=== PATIENT | female | born 1990 | race Caucasian/White ===

== ENCOUNTER → 2021-04-01 09:54 | Outpatient (CLI) | payer OTHER, SELFPAY ==
[2021-04-01 10:54] LABS: Hematocrit 39.8 % (36-46); Hemoglobin 13.3 g/dL (12.0-16.0); Mean Corpuscular HGB Conc 33.4 % (30-36); Mean Corpuscular Hemoglobin 30.5 PG (26-34); Mean Corpuscular Volume 91.2 fL (80-100); Platelet Count 186 X10^3/uL (150-400); Red Blood Cell Count 4.37 X10^6/uL (4.0-5.2); Red Cell Distribution Width 12.3 % (11.6-14.8); White Blood Cell Count 5.5 X10^3/uL (4.5-11.0)
[2021-04-01 10:58] LABS: Alanine Aminotransferase 19 IU/L (<35); Albumin 4.3 g/dL (3.5-5.0); Albumin Globulin Ratio 1.4 (1.0-2.8); Alkaline Phosphatase 42 U/L (38-126); Aspartate Aminotransferase 34 IU/L (14-36); BUN Creatinine Ratio 22.1 (6-22); Bilirubin Total 0.4 mg/dL (0.2-1.3); Blood Urea Nitrogen 17 mg/dL (7-17); Calcium 9.8 mg/dL (8.4-10.2); Carbon Dioxide 27 mmol/L (22-32); Chloride 106 mmol/L (98-107); Cholesterol 189 mg/dL (140-199); Estimated Glomerular Filt Rate > 60.0 mL/min (>60); Glucose 84 mg/dL (70-100); HDL Cholesterol 84 mg/dL (40-60); HEMOLYSIS < 15 (0-50); LDL Cholesterol Calculated 94 mg/dL (<100); Potassium 4.4 mmol/L (3.4-5.1); Sodium 139 mmol/L (137-145); Total Protein 7.3 g/dL (6.3-8.2); Triglycerides 54 mg/dL (35-150)
== END ==
PROVIDERS: PCP Nurse Practitioner Family; Referring Provider Nurse Practitioner Family; Visit Provider Nurse Practitioner Family
DX: Z13.6 Encounter for screening for cardiovascular disorders (principal); Z00.00 Encounter for general adult medical examination without abnormal findings
CPT/HCPCS: 36415; 80053; 80061; 85027

== ENCOUNTER → 2022-05-31 08:48 | Outpatient (CLI) | payer OTHER, SELFPAY ==
--- NOTE | 2022-05-31 08:49 | DI.US.S_ITS ---
PROCEDURE: US OB <= 14 WEEKS FETUS INDICATIONS: DATING OUTSIDE/PRIOR DATING DATA: Last menstrual period (LMP): 04/01/2022 LMP-based estimated date of delivery (MICHAEL): 01/06/2023 First dating scan (date and location): 05/31/2022 Estimated date of delivery (MICHAEL) from first dating scan: 01/17/2023 TECHNIQUE: Real-time scanning was performed of the fetus and maternal pelvic organs, with image documentation. Endovaginal scanning was also performed to better visualize the fetus and maternal ovaries. COMPARISON: None. FINDINGS: Embryo: Intrauterine gestational sac is seen with yolk sac and pole. Bedias-rump length is 0.9 cm, consistent with an estimated gestational age of 7 weeks 0 days. Heart rate: 135 beats per minute Maternal organs: A probable corpus luteum cyst is seen in the left ovary. No suspicious adnexal mass. IMPRESSION: Single live intrauterine with estimated gestational age of 7 weeks 0 days, giving an ultrasound MICHAEL of 01/17/2023. We strive to produce accurate, complete, and clear reports of imaging services. To assist us in improving patient care, this report was composed using standard report templates and voice recognition software. Therefore, it may contain abnormal punctuation, insertions and/or omissions. Occasional wrong-word or sound-alike substitutions may occur. Though we review the report and make efforts to correct it, we do recommend that the report be read carefully in proper context to recognize any text inaccuracies. Dictated by: Elan Saavedra M.D. on 05/31/2022 at 10:07 Approved by: Elan Saavedra M.D. on 05/31/2022 at 10:08
[2022-05-31 10:38] LABS: Appearance Urine UA CLEAR; Bilirubin Urine UA NEGATIVE (NEGATIVE); Color Urine UA YELLOW; Glucose Urine UA NEGATIVE (Negative); Ketones Urine UA NEGATIVE (NEGATIVE); Leukocyte Esterase Urine UA NEGATIVE (NEGATIVE); Nitrite Urine UA NEGATIVE (Negative); Occult Blood Urine UA NEGATIVE (Negative); Protein Urine UA NEGATIVE (Negative); Specific Gravity Urine UA <=1.005 (1.000-1.035); Urobilinogen Urine UA 0.2 E.U./dL (0.2)
[2022-05-31 10:40] LABS: pH Urine UA 6.5 (4.5-8.0)
[2022-05-31 11:55] LABS: Add Manual Diff / Slide Review NO; Basophils Absolute Auto 100 /uL (0-100); Basophils Percent Auto 0.5 % (0-2); Eosinophils Absolute Auto 0 /uL (0-450); Eosinophils Percent Auto 0.4 % (2-4); Hematocrit 38.9 % (36-46); Hemoglobin 13.4 g/dL (12.0-16.0); Lymphocytes Absolute Auto 1400 /uL (1100-4500); Lymphocytes Percent Auto 14.4 % (25-40); Mean Corpuscular HGB Conc 34.6 % (30-36); Mean Corpuscular Hemoglobin 30.6 PG (26-34); Mean Corpuscular Volume 88.3 fL (80-100); Monocytes Absolute Auto 400 /uL (0-900); Monocytes Percent Auto 3.7 % (3-14); Neutrophils Absolute Auto 8100 /uL (1500-7000); Platelet Count 204 X10^3/uL (150-400); Red Cell Distribution Width 12.3 % (11.6-14.8)
[2022-05-31 15:30] LABS: Hepatitis B Surface Antigen NEGATIVE s/c (NEGATIVE)
[2022-05-31 15:47] LABS: Hep C Virus Ab w/Reflex Quant NEGATIVE s/c (NEGATIVE)
[2022-05-31 16:32] LABS: HIV 1 & 2 Ab/Ag 4th Gen Combo NEGATIVE (NEGATIVE)
[2022-06-01 08:09] LABS: RPR Screen Non Reactive (Non Reactive)
[2022-06-01 10:41] LABS: Varicella IgG Antibody 1753 index (Immune >165)
== END ==
PROVIDERS: PCP Nurse Practitioner Family; Referring Provider Obstetrics & Gynecology; Visit Provider Obstetrics & Gynecology
DX: Z34.01 Encounter for supervision of normal first pregnancy, first trimester (principal); Z3A.01 Less than 8 weeks gestation of pregnancy
CPT/HCPCS: 36415; 76801; 76817; 80055; 81003; 86787; 86803; 86850; 86900; 86901; 87389

== ENCOUNTER → 2022-07-06 08:51 | Outpatient (CLI) | payer OTHER, SELFPAY ==
[2022-07-06 15:29] LABS: Urine N gonorrhoeae NOT DETECTED
[2022-07-06 15:42] LABS: Urine Chlamydia NOT DETECTED
== END ==
PROVIDERS: Visit Provider Obstetrics & Gynecology
DX: Z34.01 Encounter for supervision of normal first pregnancy, first trimester (principal); Z3A.13 13 weeks gestation of pregnancy
CPT/HCPCS: 87491; 87591

== ENCOUNTER → 2022-08-03 10:19 | Outpatient (CLI) | payer OTHER, SELFPAY ==
[2022-08-06 19:23] LABS: AFP Value 38.2 ng/mL (.); Gest Age on Col Date 16.3 weeks (.); Insulin Dep Diabetes No (.); OSBR Risk 1IN 10000 (.); Results Report (.); Test Results *Screen Negative* (.)
== END ==
PROVIDERS: Referring Provider Obstetrics & Gynecology; Visit Provider Obstetrics & Gynecology
DX: Z34.02 Encounter for supervision of normal first pregnancy, second trimester (principal); Z3A.16 16 weeks gestation of pregnancy
CPT/HCPCS: 36415; 82105

== ENCOUNTER → 2022-09-03 10:09 | Outpatient (CLI) | payer OTHER, SELFPAY ==
--- NOTE | 2022-09-03 10:11 | DI.US.S_ITS ---
PROCEDURE: US OB >= 14 WEEKS FETUS INDICATIONS: ANATOMY OUTSIDE/PRIOR DATING DATA: Last menstrual period (LMP): 04/01/2022 LMP-based estimated date of delivery (MICHAEL): 01/06/2023 First dating scan (date and location): 05/31/2022 Estimated date of delivery (MICHAEL) from first dating scan: 01/17/2023 The calculations are made using the ultrasound MICHAEL of 01/17/2023 TECHNIQUE: Real-time scanning was performed of the fetus, with image documentation and biometric measurements. Endovaginal scanning: Not performed. COMPARISON: [facility], OB <= 14 WEEKS FETUS, 05/31/2022, 9:14. FINDINGS: General: A single living intrauterine gestation is present. Presentation: Variable Placenta: Placental position is posterior, without previa. Amniotic fluid index: 16.7 cm, normal range is 5-24 cm. Single deepest vertical pocket is 6.8 cm. heart rate: 149 beats per minute. Maternal cervical canal: 2.6 cm long. Normal lower limit is 2.5 cm. biometrics: Biparietal diameter: 4.8 cm, 20 weeks 4 days Head circumference: 17.7 cm, 20 weeks 1 day Abdominal circumference: 16.4 cm, 21 weeks 3 days Femur length: 3.2 cm, 19 weeks 6 days Clinically estimated gestational age: 20 weeks 4 days Composite gestational age from present scan: 20 weeks 4 days Estimated weight and percentile: 307 g, 51st percentile Anatomic survey: Neuro: Ventricles are non-dilated at less than 10 mm. Cisterna magna is normal at 3-11 mm. Cerebellum is normal in size and morphology. Nuchal skin fold: Normal at less than 6 mm between 14-21 weeks gestational age. Face: Nose and lips, facial profile are normal. Spine: No evidence for spina bifida. Heart: 4-chambered heart is present, with normal ventricular outflow tracts. Small unspecific agent foci are seen within the right and left ventricles. Diaphragm: Diaphragm is intact. Stomach: Left-sided stomach is present. Kidneys: Borderline dilated left renal pelvis measuring up to 4 mm in anterior-posterior dimension. No right hydronephrosis. Cord: 3-vessel cord has orthotopic insertion. Bladder: Normal in size. Extremities: All 4 extremities identified. IMPRESSION: 1. Single live intrauterine with appropriate interval growth. Estimated weight is 307 g, 51st percentile for gestational age. 2. There are small echogenic foci within both the right and left ventricles which is a nonspecific finding and can be seen in to 20% of normal fetuses. This may represent the normal papillary muscle or cordae tendineae. Recommend correlation with maternal risk factors and further evaluation as clinically appropriate. 3. Borderline left renal pelviectasis measuring up to 4 mm in anterior-posterior dimension. Recommend follow-up ultrasound. 4. Otherwise, anatomic survey is within normal limits We strive to produce accurate, complete, and clear reports of imaging services. To assist us in improving patient care, this report was composed using standard report templates and voice recognition software. Therefore, it may contain abnormal punctuation, insertions and/or omissions. Occasional wrong-word or sound-alike substitutions may occur. Though we review the report and make efforts to correct it, we do recommend that the report be read carefully in proper context to recognize any text inaccuracies. Approved by: Elan Saavedra M.D. on 09/03/2022 at 12:31
== END ==
PROVIDERS: Referring Provider Obstetrics & Gynecology; Visit Provider Obstetrics & Gynecology
DX: Z34.02 Encounter for supervision of normal first pregnancy, second trimester (principal); Z3A.20 20 weeks gestation of pregnancy
CPT/HCPCS: 76811